=== PATIENT | female | born 1970 | race African-American/Black ===

== ENCOUNTER 2017-11-23 09:33 | Emergency (ER) | payer OTHER ==
[~2017-11-23] VITALS: Ht 157.5 cm; Wt 59.1 kg
[2017-11-23] MEDS ORDERED: PERCOCET 5/31 TABLET PO (13:51)
[2017-11-23 14:00] VITALS: BP 136/81
== END 2017-11-23 14:20 | disposition home or self-care (01) ==
LOC: EME 09:33
DX: S30.0XXA Contusion of lower back and pelvis, initial encounter (principal); M54.2 Cervicalgia; M25.512 Pain in left shoulder; W10.9XXA Fall (on) (from) unspecified stairs and steps, initial encounter; Z72.0 Tobacco use
CPT/HCPCS: 71046; 72040; 72070; 72100; 72125; 72220; 99281; 99284